=== PATIENT | female | born 1945 | race Caucasian/White ===

== ENCOUNTER 2021-02-22 15:47 | Emergency (ER) | payer OTHER ==
[2021-02-22 16:00] VITALS: BP 149/66; PULSE 66; TEMP 98.4; BMI 22.6
[2021-02-22] MEDS ORDERED: ACETAMINOPHEN 500 MG TABLET (FP) PO ONE (16:51)
[2021-02-22] MEDS ORDERED: ACETAMINOPHEN 500 MG TABLET (FP) ONE ×2 (17:01→17:08)
== END 2021-02-22 17:33 | disposition home or self-care (01) ==
LOC: JER 15:47 → JERFT 15:47
DX: S42.91XA Fracture of right shoulder girdle, part unspecified, initial encounter for closed fracture (principal); W07.XXXA Fall from chair, initial encounter; W22.09XA Striking against other stationary object, initial encounter
CPT/HCPCS: 73030-TC-RT-FY; 73070-TC-RT-FY; 99284-25